=== PATIENT | male | born 1990 | race Caucasian/White ===

== ENCOUNTER 2024-07-21 05:04 | Emergency (ER) | payer OTHER, SELFPAY ==
[2024-07-21] VITALS (10 sets, daily range): BP systolic 133–152; BP diastolic 71–96; PULSE 69–87; RESP 10–23; TEMP 36.9; O2SAT 95–99; BMI 28.1
--- NOTE | 2024-07-21 05:06 | DI.RAD.S_ITS ---
PROCEDURE: XR CHEST 1V INDICATIONS: chest pain TECHNIQUE: One view of the chest was acquired. COMPARISON: None. FINDINGS: Surgical changes and devices: None. Lungs and pleura: Lungs are clear. No pleural effusions or pneumothorax. Mediastinum: Mediastinal contours appear normal. Heart size is normal. Bones and chest wall: No suspicious bony lesions. Overlying soft tissues appear unremarkable. IMPRESSION: No acute cardiopulmonary abnormality is seen. Approved by: Eloy Dumont M.D. on 07/21/2024 at 8:13
--- NOTE | 2024-07-21 05:07 | ED_ITS ---
HPI - Chest Pain <Abdiel Mendiola MD - Last Filed: 07/21/24 08:25> General Chief Complaint: Chest Pain Stated Complaint: chest pain Time Seen by Provider: 07/21/24 05:06 History of Present Illness HPI narrative: 34-year-old male without history of CAD or other heart problems, complains intermittent chest discomfort pressure sensation with palpitations and racing heartbeat sensation since 0230 this morning, two episodes so far, lasting about 15 minutes peace, each resolved on its own without specific treatment or maneuvers. Third episode of chest discomfort without palpitation fast heart rate sensation, still present during transport by EMS, resolving chest discomfort but still 2/10 on arrival, no nitroglycerin given by EMS. No recent illness symptoms, no fevers or chills, no nausea vomiting diarrhea, no black or red stools, no new medications, no change in medications, no [id number] substances, no new activities. Patient called 911, was given aspirin during transport, no nitroglycerin, chest discomfort nearly resolved. Related Data Allergies Allergy/AdvReac Type Severity Reaction Status Date / Time Penicillins AdvReac Verified 07/21/24 05:23 Review of Systems <Abdiel Mendiola MD - Last Filed: 07/21/24 08:25> Review of Systems Narrative: See HPI Exam <Abdiel Mendiola MD - Last Filed: 07/21/24 08:25> Narrative Exam Narrative: GENERAL: Well-developed patient, in mild distress. HEAD: Atraumatic. Normocephalic. EYES: Pupils equal round and reactive. Extraocular motions intact. No scleral icterus. No injection or drainage. ENT: Nose without bleeding, purulent drainage. Throat without erythema, tonsillar hypertrophy or exudate. Airway patent. NECK: Trachea midline. Non tender CARDIOVASCULAR: Regular rate and rhythm without murmurs, gallops, or rubs. RESPIRATORY: Clear to auscultation. Breath sounds equal bilaterally. No wheezes, rales, or rhonchi. GASTROINTESTINAL: Abdomen soft, non-tender, nondistended. EXTREMITIES: No edema or joint tenderness. BACK: Nontender without deformity or crepitance. No flank tenderness. NEURO: AOx3. Motor functions grossly nonfocal SKIN: No rash or erythema of visible areas Initial Vital Signs Initial Vital Signs: Vital Signs Pulse Rate 86 07/21/24 05:08 Respiratory Rate 10 L 07/21/24 05:08 Pulse Oximetry 99 07/21/24 05:08 <Estefanía Alexis DO - Last Filed: 07/21/24 08:16> Initial Vital Signs Initial Vital Signs: Vital Signs Pulse Rate 86 07/21/24 05:08 Respiratory Rate 10 L 07/21/24 05:08 Pulse Oximetry 99 07/21/24 05:08 Scores <Abdiel Mendiola MD - Last Filed: 07/21/24 08:25> HEART Score Heart Score Total: 1 <Estefanía Alexis DO - Last Filed: 07/21/24 08:16> HEART Score Heart Score history: Moderately Suspicious Heart Score EKG: Normal Heart Score Age: < 45 years old Heart Score risk factors: No known risk factors Heart Score troponin: < or = to normal limit Heart Score Total: 1 Course <Abdiel Mendiola MD - Last Filed: 07/21/24 08:25> Orders Ordered: ED Orders 07/21/24 05:06 XR chest 1V Stat EKG-12 Lead Stat 07/21/24 05:12 Complete Blood Count AUTO DIFF Stat Comprehensive Metabolic Panel Stat Lipase Stat Troponin & CK Cardiac Panel Stat 07/21/24 07:15 Troponin I Stat Discontinued Medications Aspirin (Aspirin 81 Mg Chew Tab) 324 mg PO NOW ONE Stop: 07/21/24 05:07 Last Admin: 07/21/24 05:11 Dose: Not Given Nitroglycerin (Nitroglycerin 0.4 Mg Sl Tab) 0.4 mg SL [id number] PRN PRN Reason: Chest Pain Vital Signs Vital signs: Vital Signs - 8 hr 07/21/24 05:08 07/21/24 05:12 07/21/24 05:30 Temperature 98.5 F Pulse Rate 86 85 85 Respiratory Rate 10 L 16 21 Blood Pressure 152/96 H Pulse Oximetry 99 99 98 Oxygen Delivery Method Room Air 07/21/24 05:44 07/21/24 05:44 07/21/24 06:00 Temperature Pulse Rate 87 81 Respiratory Rate 11 L 23 Blood Pressure 144/93 H Pulse Oximetry 98 97 Oxygen Delivery Method 07/21/24 06:02 07/21/24 06:02 07/21/24 06:30 Temperature Pulse Rate 74 74 Respiratory Rate 23 22 Blood Pressure 144/72 H Pulse Oximetry 97 96 Oxygen Delivery Method 07/21/24 06:31 07/21/24 06:31 07/21/24 07:00 Temperature Pulse Rate 76 Respiratory Rate 22 Blood Pressure 142/71 H 133/79 Pulse Oximetry 95 Oxygen Delivery Method 07/21/24 07:00 07/21/24 07:30 07/21/24 07:30 Temperature Pulse Rate 70 69 Respiratory Rate 23 20 Blood Pressure 136/83 Pulse Oximetry 96 96 Oxygen Delivery Method <Estefanía Alexis DO - Last Filed: 07/21/24 08:16> Orders Ordered: ED Orders 07/21/24 05:06 XR chest 1V Stat EKG-12 Lead Stat 07/21/24 05:12 Complete Blood Count AUTO DIFF Stat Comprehensive Metabolic Panel Stat Lipase Stat Troponin & CK Cardiac Panel Stat 07/21/24 07:15 Troponin I Stat Discontinued Medications Aspirin (Aspirin 81 Mg Chew Tab) 324 mg PO NOW ONE Stop: 07/21/24 05:07 Last Admin: 07/21/24 05:11 Dose: Not Given Nitroglycerin (Nitroglycerin 0.4 Mg Sl Tab) 0.4 mg SL [id number] PRN PRN Reason: Chest Pain Vital Signs Vital signs: Vital Signs - 8 hr 07/21/24 05:08 07/21/24 05:12 07/21/24 05:30 Temperature 98.5 F Pulse Rate 86 85 85 Respiratory Rate 10 L 16 21 Blood Pressure 152/96 H Pulse Oximetry 99 99 98 Oxygen Delivery Method Room Air 07/21/24 05:44 07/21/24 05:44 07/21/24 06:00 Temperature Pulse Rate 87 81 Respiratory Rate 11 L 23 Blood Pressure 144/93 H Pulse Oximetry 98 97 Oxygen Delivery Method 07/21/24 06:02 07/21/24 06:02 07/21/24 06:30 Temperature Pulse Rate 74 74 Respiratory Rate 23 22 Blood Pressure 144/72 H Pulse Oximetry 97 96 Oxygen Delivery Method 07/21/24 06:31 07/21/24 06:31 07/21/24 07:00 Temperature Pulse Rate 76 Respiratory Rate 22 Blood Pressure 142/71 H 133/79 Pulse Oximetry 95 Oxygen Delivery Method 07/21/24 07:00 07/21/24 07:30 07/21/24 07:30 Temperature Pulse Rate 70 69 Respiratory Rate 23 20 Blood Pressure 136/83 Pulse Oximetry 96 96 Oxygen Delivery Method MDM - Chest Pain <Abdiel Mendiola MD - Last Filed: 07/21/24 08:25> Lab Data Attestation: I reviewed the patient's lab results. Lab results narrative: White blood cell count 5300, hemoglobin 16, platelets adequate. Basic metabolic panel unremarkable, liver functions normal, lipase normal. Initial troponin 0.015 measurable but low. 07/21/24 05:12 07/21/24 05:12 Labs: Lab Results 07/21/24 07/21/24 Range/Units 05:12 06:55 WBC 5.3 (4.5-11.0) X10^3/uL RBC 4.89 (4.5-5.9) X10^6/uL Hgb 16.4 (13.5-17.5) g/dL Hct 46.4 (41-53) % MCV 94.9 (80-100) fL MCH 33.6 (26-34) PG MCHC 35.4 (30-36) % RDW 12.9 (11.6-14.8) % Plt Count 234 (150-400) X10^3/uL Neut % (Auto) 67.6 (50-75) % Lymph % (Auto) 24.5 L (25-40) % [place] % (Auto) 5.1 (3-14) % Eos % (Auto) 1.8 L (2-4) % Baso % (Auto) 1.0 (0-2) % Neut # (Auto) 3600 (1750-2867) /uL Lymph # (Auto) 1300 (3150-7153) /uL [place] # (Auto) 300 (0-900) /uL Eos # (Auto) 100 (0-450) /uL Baso # (Auto) 100 (0-100) /uL Sodium 135 L (137-145) mmol/L Potassium 3.4 (3.4-5.1) mmol/L Chloride 101 (98-107) mmol/L Carbon Dioxide 23 (22-32) mmol/L BUN 5 L (9-20) mg/dL Creatinine 0.86 (0.66-1.25) mg/dL Estimated GFR > 60 (>60) mL/min BUN/Creatinine Ratio 5.8 L (6-22) Glucose 124 H (70-100) mg/dL Calcium 9.5 (8.4-10.2) mg/dL Total Bilirubin 0.8 (0.2-1.3) mg/dL AST 133 H (17-59) IU/L ALT 136 H (<50) IU/L Alkaline Phosphatase 80 (38-126) U/L Total Creatine Kinase 94 (55-170) U/L Troponin I 0.015 < 0.012 (0.01-0.034) ng/mL Total Protein 8.0 (6.3-8.2) g/dL Albumin 4.7 (3.5-5.0) g/dL Globulin 3.3 (1.7-4.1) g/dL Albumin/Globulin Ratio 1.4 (1.0-2.8) Lipase 57 (23-300) U/L ECG Data Attestation: I personally reviewed and interpreted this ECG as follows: Interpretation: Sinus rhythm with sinus arrhythmia noted, ventricular total rate 89, no obvious ST segment elevation or depression changes. Single PVC noted. MI 136, QRS 92, QTC 445. MDM Narrative Medical decision making narrative: 34-year-old male with no known history of CAD with intermittent chest pressure with heart racing symptoms for the last 3 hours, 2 episodes episodes of 15 minutes resolving spontaneously, no symptoms similar problems prior. Third episode of chest discomfort without fast heart rate sensation, decreasing but still present 2/10 scale on arrival. Normotensive. Aspirin given by EMS. Trial of nitroglycerin sublingual here. Afebrile, sirs screen negative. quality assurance monitor chassis shows occasional PVC. Screening EKG similarly showed PVC, no obvious ischemic changes, unremarkable intervals. Labs pending. White blood cell count normal, hemoglobin normal, CMP unremarkable, lipase normal. Troponin measurable but 0.015 low, will repeat interval troponin. Chest x-ray. Impressions: ?Hazy right lower lobe atelectasis/infiltrate. See teleradiology report. No cough cold symptoms. No fever, normal lung exam. Repeat interval troponin pending. Signed out to oncoming ED shift physician Dr. Alexis <Estefanía Alexis, - Last Filed: 07/21/24 08:16> Lab Data Labs: Lab Results 07/21/24 07/21/24 Range/Units 05:12 06:55 WBC 5.3 (4.5-11.0) X10^3/uL RBC 4.89 (4.5-5.9) X10^6/uL Hgb 16.4 (13.5-17.5) g/dL Hct 46.4 (41-53) % MCV 94.9 (80-100) fL MCH 33.6 (26-34) PG MCHC 35.4 (30-36) % RDW 12.9 (11.6-14.8) % Plt Count 234 (150-400) X10^3/uL Neut % (Auto) 67.6 (50-75) % Lymph % (Auto) 24.5 L (25-40) % [place] % (Auto) 5.1 (3-14) % Eos % (Auto) 1.8 L (2-4) % Baso % (Auto) 1.0 (0-2) % Neut # (Auto) 3600 (2004-7180) /uL Lymph # (Auto) 1300 (1779-7242) /uL [place] # (Auto) 300 (0-900) /uL Eos # (Auto) 100 (0-450) /uL Baso # (Auto) 100 (0-100) /uL Sodium 135 L (137-145) mmol/L Potassium 3.4 (3.4-5.1) mmol/L Chloride 101 (98-107) mmol/L Carbon Dioxide 23 (22-32) mmol/L BUN 5 L (9-20) mg/dL Creatinine 0.86 (0.66-1.25) mg/dL Estimated GFR > 60 (>60) mL/min BUN/Creatinine Ratio 5.8 L (6-22) Glucose 124 H (70-100) mg/dL Calcium 9.5 (8.4-10.2) mg/dL Total Bilirubin 0.8 (0.2-1.3) mg/dL AST 133 H (17-59) IU/L ALT 136 H (<50) IU/L Alkaline Phosphatase 80 (38-126) U/L Total Creatine Kinase 94 (55-170) U/L Troponin I 0.015 < 0.012 (0.01-0.034) ng/mL Total Protein 8.0 (6.3-8.2) g/dL Albumin 4.7 (3.5-5.0) g/dL Globulin 3.3 (1.7-4.1) g/dL Albumin/Globulin Ratio 1.4 (1.0-2.8) Lipase 57 (23-300) U/L MDM Narrative Medical decision making narrative: 34-year-old male with no known history of CAD with intermittent chest pressure with heart racing symptoms for the last 3 hours, 2 episodes episodes of 15 minutes resolving spontaneously, no symptoms similar problems prior. Third episode of chest discomfort without fast heart rate sensation, decreasing but still present 2/10 scale on arrival. Normotensive. Aspirin given by EMS. Trial of nitroglycerin sublingual here. Afebrile, sirs screen negative. quality assurance monitor chassis shows occasional PVC. Screening EKG similarly showed PVC, no obvious ischemic changes, unremarkable intervals. Labs pending. White blood cell count normal, hemoglobin normal, CMP unremarkable, lipase normal. Troponin measurable but 0.015 low, will repeat interval troponin. Chest x-ray. Impressions: ?Hazy right lower lobe atelectasis/infiltrate. See teleradiology report. No cough cold symptoms. No fever, normal lung exam. Repeat interval troponin pending. Signed out to oncoming ED shift physician Dr. Alexis. 07/21/2024 Dr. Alexis: Patient signed out to myself, patient is seen and evaluated independently by myself. Patient's labs, EKG and chest x-ray reviewed. Troponin was pending repeat is less 0.012. Chest x-ray as read as heavy right lower lobe atelectasis/infiltrate. Reviewed with patient no recent cold or cough symptoms, discussed starting an antibiotic but patient defers. Patient notes palpitations with his chest discomfort had 2 episodes in particular at home did feel lightheaded with 1. No syncope. No other known cardiac risk factors, denies any embolic risk factors. Patient had occasional PVCs here but no other arrhythmias. Patient and I discussed his findings from today, feels appropriate for discharge home. Discussed patient might benefit from Holter ZIO patch monitoring. [facility] has primary [facility] [employer] [facility] and we will reach out to them. Discussed return precautions all questions answered. Discharge Plan Departure Patient Disposition: Home Clinical Impression: Chest pain, Palpitations Instructions: DI for Chest Pain Activity Restrictions/Additional Instructions: Follow up with your primary care for recheck. If you have recurrent episodes of racing meet or palpitations they may such you up for a possible Holter monitor or Ziopatch. You did have an occasional PVC or extra beat but no arrhythmias while here in the department. Your imaging showed a possible lower lobe atelectasis/infiltrate. If you develop fevers or chills, please follow up with your physician for recheck. Please return for new or worsening symptoms, new chest pain, shortness of breath, lightheadedness or passing out, new swelling in your extremities or other new or concerning Referrals: ProviderJaxon [Primary Care Provider] - Stand Alone Forms: Patient Portal/API
--- NOTE | 2024-07-21 05:15 | EKG_ITS ---
[address] [address] Test Date: 2024-07-21 Pat Name: Steven Milan Department: Room: Gender: Male Principal Solutions Architect: MADELINE REED : 1990 Requested By: Order Number: [id number] Reading MD: Ten Breaux Measurements Intervals [place] Rate: 89 P: 60 OR: 136 QRS: 15 QRSD: 92 T: 1 QT: 366 QTc: 445 Interpretive Statements Sinus rhythm with sinus arrhythmia with occasional premature ventricular complexes Nonspecific T wave abnormality Electronically Signed On 07-22-2024 14:43:56 PDT by Ten Breaux
[2024-07-21 05:22] LABS: Add Manual Diff / Slide Review NO; Basophils Absolute Auto 100 /uL (0-100); Eosinophils Absolute Auto 100 /uL (0-450); Eosinophils Percent Auto 1.8 % (2-4); Hematocrit 46.4 % (41-53); Hemoglobin 16.4 g/dL (13.5-17.5); Lymphocytes Absolute Auto 1300 /uL (1100-4500); Lymphocytes Percent Auto 24.5 % (25-40); Mean Corpuscular HGB Conc 35.4 % (30-36); Mean Corpuscular Hemoglobin 33.6 PG (26-34); Mean Corpuscular Volume 94.9 fL (80-100); Monocytes Absolute Auto 300 /uL (0-900); Monocytes Percent Auto 5.1 % (3-14); Neutrophils Absolute Auto 3600 /uL (1500-7000); Neutrophils Percent Auto 67.6 % (50-75); Platelet Count 234 X10^3/uL (150-400); Red Blood Cell Count 4.89 X10^6/uL (4.5-5.9); Red Cell Distribution Width 12.9 % (11.6-14.8); White Blood Cell Count 5.3 X10^3/uL (4.5-11.0)
[2024-07-21 05:34] LABS: Alanine Aminotransferase 136 IU/L (<50); Albumin 4.7 g/dL (3.5-5.0); Albumin Globulin Ratio 1.4 (1.0-2.8); Alkaline Phosphatase 80 U/L (38-126); Aspartate Aminotransferase 133 IU/L (17-59); BUN Creatinine Ratio 5.8 (6-22); Bilirubin Total 0.8 mg/dL (0.2-1.3); Blood Urea Nitrogen 5 mg/dL (9-20); Calcium 9.5 mg/dL (8.4-10.2); Carbon Dioxide 23 mmol/L (22-32); Chloride 101 mmol/L (98-107); Creatine Kinase 94 U/L (55-170); Estimated Glomerular Filt Rate > 60 mL/min (>60); Globulin 3.3 g/dL (1.7-4.1); Glucose 124 mg/dL (70-100); HEMOLYSIS 17 (0-50); Lipase 57 U/L (23-300); Potassium 3.4 mmol/L (3.4-5.1); Sodium 135 mmol/L (137-145)
[2024-07-21 05:46] LABS: Troponin I 0.015 ng/mL (0.01-0.034)
[2024-07-21 07:24] LABS: Troponin I < 0.012 ng/mL (0.01-0.034)
== END 2024-07-21 07:59 | disposition home or self-care (01) ==
PROVIDERS: Emergency Medicine; Emergency Provider Emergency Medicine
DX: R07.9 Chest pain, unspecified (principal); R00.2 Palpitations
CPT/HCPCS: 36415; 71045; 80053; 82550; 83690; 84484; 85025; 93005; 99283; 99284